=== PATIENT | male | born 1990 | race African-American/Black ===

== ENCOUNTER 2017-03-30 10:34 | Emergency (ER) | payer SELFPAY ==
[~2017-03-30] VITALS: Ht 170.2 cm; Wt 73.0 kg
[2017-03-30 10:38] VITALS: BP 123/76
== END 2017-03-30 12:40 | disposition home or self-care (01) ==
LOC: ER 12:19
DX: H10.89 Other conjunctivitis (principal); F12.10 Cannabis abuse, uncomplicated; F17.200 Nicotine dependence, unspecified, uncomplicated
CPT/HCPCS: 99283

== ENCOUNTER 2017-03-31 11:23 | Emergency (ER) | payer SELFPAY ==
[~2017-03-31] VITALS: Ht 170.2 cm; Wt 73.0 kg
[2017-03-31] MEDS ORDERED: KETOROLAC 60MG/2ML VIAL IM ONE (16:30)
[2017-03-31] MEDS ORDERED: CEFTRIAXONE SODIUM 250 MG/VIAL IM ONE (16:45)
[2017-03-31] MEDS ORDERED: AZITHROMYCIN 500 MG TABLET PO ONE (16:45)
[2017-03-31] MEDS ORDERED: LIDOCAINE HCL 1% 20ML VIAL (Pyxis) INJ MC ONE (16:45)
[2017-03-31 17:01] VITALS: BP 121/74
[2017-03-31 17:33] LABS: CLARITY URINE CLEAR (CLEAR); COLOR URINE YELLOW (YELLOW); GLUCOSE URINE NEGATIVE (NEGATIVE); KETONES URINE NEGATIVE (NEGATIVE); LEUKOCYTE ESTERASE URINE 1+ (NEGATIVE); NITRITE URINE NEGATIVE (NEGATIVE); OCCULT BLOOD URINE 2+ (NEGATIVE); PROTEIN URINE NEGATIVE (NEGATIVE); SPECIFIC GRAVITY URINE 1.015 (1.005-1.030)
== END 2017-03-31 18:46 | disposition home or self-care (01) ==
LOC: ER 11:24
DX: M25.461 Effusion, right knee (principal); N39.0 Urinary tract infection, site not specified; F12.10 Cannabis abuse, uncomplicated; F17.200 Nicotine dependence, unspecified, uncomplicated
CPT/HCPCS: 73562; 81001; 87491; 87591; 96372; 99285; J0696; J1885; J3490